=== PATIENT | male | born 1955 | race African-American/Black ===

== ENCOUNTER 2018-11-09 09:52 | Inpatient (IN) | payer MEDICAID ==
[2018-11-09] VITALS (8 sets, daily range): BP systolic 102–139; BP diastolic 43–97
[~2018-11-09] VITALS: Ht 182.9 cm; Wt 86.6 kg
[2018-11-09] MEDS ORDERED: ONDANSETRON HCL 4MG/2ML INJ IV STA (10:38)
[2018-11-09] MEDS ORDERED: MORPHINE SULFATE 4 MG/ML CPJ (NOT FOR IM USE) IV STA (10:38)
[2018-11-09] MEDS ORDERED: FUROSEMIDE 40MG/4ML VIAL IV ONE (10:45)
[2018-11-09] MEDS ORDERED: DILTIAZEM HCL 5MG/ML 5ML VIAL IV ONE ×2 (10:45→11:15)
[2018-11-09] MEDS ORDERED: NITROGLYCERIN OINT 1GM/INCH UDPKT TD ONE (10:45)
[2018-11-09 11:04] LABS: BASOPHILS % 0.6 % (0.0-2.0); EOSINOPHILS % 0.9 % (0.0-5.0); HEMATOCRIT. 46.3 % (42.0-52.0); HEMOGLOBIN. 15.8 g/dL (14.0-18.0); LYMPHOCYTES % 18.9 % (20.0-50.0); MEAN CORPUSCULAR HEMOGLOBIN 33.5 pg (28.0-32.0); MONOCYTES % 6.6 % (2.0-8.0); PLATELET 160 x1000/uL (130-400); RED BLOOD CELL COUNT 4.72 mill/uL (4.7-6.1); RED CELL DISTRIBUTION WIDTH 15.3 % (11.6-14.6)
[2018-11-09 11:13] LABS: CHLORIDE 108 mEq/L (98-107); INR 1.1; PARTIAL THROMBOPLASTIN TIME 26.9 sec (23.4-31.0); PROTHROMBIN TIME 11.4 sec (9.6-11.0)
[2018-11-09] MEDS ORDERED: DILTIAZEM HCL 125 MG in DEXT 5% WATER 100 ML IV ONE (11:15)
[2018-11-09] MEDS ORDERED: DILTIAZEM HCL 125 MG in DEXT 5% WATER 100 ML IV NR (11:30)
[2018-11-09] MEDS ORDERED: IOHEXOL-350 100 ML BOTTLE ONE (11:59)
[2018-11-09] MEDS ORDERED: ENOXAPARIN 100MG/ML SYR SUBCUT ONE (12:00)
[2018-11-09] MEDS ORDERED: DIGOXIN 500MCG/2ML AMP IV ONE (12:00)
[2018-11-09] MEDS ORDERED: ACETAMINOPHEN 325MG TABLET PO PRN (13:30)
[2018-11-09] MEDS ORDERED: ONDANSETRON HCL 4MG/2ML INJ IV PRN (13:30)
[2018-11-09] MEDS ORDERED: MORPHINE SULFATE 2 MG/ML CPJ (NOT FOR IM USE) IV PRN (13:30)
[2018-11-09] MEDS: FUROSEMIDE 100MG/10ML VIAL IVP SCH ×2 (13:55→17:55)
[2018-11-09 14:42] LABS: CLARITY URINE CLEAR (CLEAR); COLOR URINE YELLOW (YELLOW); KETONES URINE NEGATIVE (NEGATIVE); LEUKOCYTE ESTERASE URINE NEGATIVE (NEGATIVE); NITRITE URINE NEGATIVE (NEGATIVE); OCCULT BLOOD URINE NEGATIVE (NEGATIVE); PH URINE 6.5 (4.5-8.0); PROTEIN URINE NEGATIVE (NEGATIVE); SPECIFIC GRAVITY URINE 1.015 (1.005-1.030); UROBILINOGEN URINE 0.2 E.U./dL (0.2-1.0)
[2018-11-09] MEDS: MAGNESIUM OXIDE 400MG TABLET PO SCH ×2 (14:55→21:52)
[2018-11-09 14:56] LABS: *AMPHETAMINES SCREEN URINE NEGATIVE (NEGATIVE)
[2018-11-09 14:57] LABS: *BARBITURATES SCREEN URINE NEGATIVE (NEGATIVE); *BENZODIAZEPINES SCREEN URINE NEGATIVE (NEGATIVE); *COCAINE SCREEN URINE PRESUMTIVE POSITIVE (NEGATIVE); CANNABINOID URINE SCREEN NEGATIVE (NEGATIVE); METHADONE URINE SCREEN NEGATIVE (NEGATIVE); OPIATES URINE SCREEN PRESUMTIVE POSITIVE (NEGATIVE)
[2018-11-09 14:58] LABS: PHENCYCLIDINE URINE SCREEN NEGATIVE (NEGATIVE)
[2018-11-09 15:00] LABS: HEPATITIS B SURFACE ANTIGEN NEGATIVE
[2018-11-09] MEDS ORDERED: DILTIAZEM HCL 5MG/ML 5ML VIAL IV SCH (15:00)
[2018-11-09 15:30] LABS: HEPATITIS A AB IGM NEGATIVE (NEGATIVE)
[2018-11-09] MEDS ORDERED: DILTIAZEM HCL 125 MG in DEXT 5% WATER 100 ML IV SCH (19:00)
[2018-11-09] MEDS: DILTIAZEM HCL 125 MG in DEXT 5% WATER 100 ML IV SCH (20:19)
[2018-11-09] MEDS ORDERED: ZOLPIDEM TARTRATE 5MG TABLET PO PRN (21:00)
[2018-11-09] MEDS: ENOXAPARIN 100MG/ML SYR SUBCUT SCH (21:52)
[2018-11-10] VITALS (15 sets, daily range): BP systolic 93–129; BP diastolic 51–71
[2018-11-10] MEDS: DILTIAZEM HCL 125 MG in DEXT 5% WATER 100 ML IV SCH ×2 (03:41→09:25)
[2018-11-10] MEDS: FUROSEMIDE 100MG/10ML VIAL IVP SCH ×3 (06:27→16:19)
[2018-11-10 06:31] LABS: BASOPHILS % 0.7 % (0.0-2.0); EOSINOPHILS % 2.1 % (0.0-5.0); HEMATOCRIT. 43.8 % (42.0-52.0); LYMPHOCYTES % 30.1 % (20.0-50.0); MEAN CORPUSCULAR HEMOGLOBIN 33.3 pg (28.0-32.0); MEAN CORPUSCULAR VOLUME 97.4 fL (80.0-94.0); MEAN PLATELET VOLUME 9.9 fl (7.4-10.4); MONOCYTES % 10.1 % (2.0-8.0); PLATELET 142 x1000/uL (130-400); RED CELL DISTRIBUTION WIDTH 15.2 % (11.6-14.6)
[2018-11-10 06:35] LABS: CHLORIDE 102 mEq/L (98-107)
[2018-11-10] MEDS: MAGNESIUM OXIDE 400MG TABLET PO SCH ×2 (08:32→16:19)
[2018-11-10] MEDS: ENOXAPARIN 100MG/ML SYR SUBCUT SCH ×2 (08:33→20:36)
[2018-11-10] MEDS: POTASSIUM CHLORIDE 20MEQ TABLET SR PO SCH ×2 (11:28→16:19)
[2018-11-10] MEDS: DILTIAZEM HCL 60MG TABLET PO SCH ×2 (18:00→23:44)
[2018-11-11] VITALS (11 sets, daily range): BP systolic 106–150; BP diastolic 57–81
[2018-11-11] MEDS: DILTIAZEM HCL 60MG TABLET PO SCH ×3 (06:13→17:15)
[2018-11-11 06:45] LABS: BASOPHILS % 0.6 % (0.0-2.0); EOSINOPHILS % 2.2 % (0.0-5.0); HEMATOCRIT. 47.3 % (42.0-52.0); HEMOGLOBIN. 16.3 g/dL (14.0-18.0); LYMPHOCYTES % 32.7 % (20.0-50.0); MEAN CORPUSCULAR HEMOGLOBIN 33.8 pg (28.0-32.0); MEAN CORPUSCULAR VOLUME 97.9 fL (80.0-94.0); MEAN PLATELET VOLUME 9.6 fl (7.4-10.4); MONOCYTES % 11.4 % (2.0-8.0); NEUTROPHILS % 53.1 % (40.0-76.0); PLATELET 161 x1000/uL (130-400); RED BLOOD CELL COUNT 4.83 mill/uL (4.7-6.1); RED CELL DISTRIBUTION WIDTH 15.2 % (11.6-14.6)
[2018-11-11 07:12] LABS: CHLORIDE 102 mEq/L (98-107)
[2018-11-11] MEDS: MAGNESIUM OXIDE 400MG TABLET PO SCH ×2 (08:13→17:15)
[2018-11-11] MEDS: POTASSIUM CHLORIDE 20MEQ TABLET SR PO SCH ×2 (08:13→17:14)
[2018-11-11] MEDS: FUROSEMIDE 100MG/10ML VIAL IVP SCH ×2 (08:26→17:13)
[2018-11-11] MEDS: ENOXAPARIN 100MG/ML SYR SUBCUT SCH (08:27)
[2018-11-11] MEDS ORDERED: IOHEXOL-350 100 ML BOTTLE ONE (14:52)
[2018-11-11] MEDS ORDERED: OMEP10CA5 PO (14:59)
[2018-11-11] MEDS ORDERED: LISI2.5T47 PO (14:59)
[2018-11-11] MEDS ORDERED: ASPI-1393 PO (14:59)
[2018-11-11] MEDS ORDERED: SPIR25TA6 PO (14:59)
== END 2018-11-11 18:15 | disposition home or self-care (01) | DRG 816 ==
LOC: ER 09:52 → EDBEDREQSVC 10:42 → 3WST 12:05 → EDBEDREQ 12:10 → ENRESERV 12:20
PROVIDERS: ADMIT Internal Medicine; ATTEND Internal Medicine
DX: T40.5X1A Poisoning by cocaine, accidental (unintentional), initial encounter (principal); I50.41 Acute combined systolic (congestive) and diastolic (congestive) heart failure; E87.8 Other disorders of electrolyte and fluid balance, not elsewhere classified; I42.9 Cardiomyopathy, unspecified; E44.1 Mild protein-calorie malnutrition; E83.42 Hypomagnesemia; I11.0 Hypertensive heart disease with heart failure; K83.8 Other specified diseases of biliary tract; I47.1 Supraventricular tachycardia; R74.0 Nonspecific elevation of levels of transaminase and lactic acid dehydrogenase [LDH]; I48.4 Atypical atrial flutter; F17.210 Nicotine dependence, cigarettes, uncomplicated; I48.91 Unspecified atrial fibrillation; I71.2 Thoracic aortic aneurysm, without rupture; F32.9 Major depressive disorder, single episode, unspecified; I34.0 Nonrheumatic mitral (valve) insufficiency; I50.9 Heart failure, unspecified; Z68.25 Body mass index [BMI] 25.0-25.9, adult; Z79.82 Long term (current) use of aspirin; Z71.6 Tobacco abuse counseling; Z71.51 Drug abuse counseling and surveillance of drug abuser; Y92.89 Other specified places as the place of occurrence of the external cause
CPT/HCPCS: 36415; 71045; 71275; 74174; 74181; 75572; 76700; 80048; 80061; 80076; 80305; 82248; 83735; 83880; 84443; 84484; 86705; 86709; 86803; 87340; 93005; 93306; 96374; 96376; 99285; J1160; J1650; J1940; J2270; J2405; J3490; J7060; Q9967